=== PATIENT | female | born 1990 | race Caucasian/White ===

== ENCOUNTER 2023-12-09 08:09 | Emergency (ER) | payer OTHER ==
--- OUTSIDE RECORDS SUMMARY | 2023-12-09 08:14 | XMS REPORT | Continuity of Care Document ---
Author Name Unknown Address [address] [facility] [place] [address] [facility] Address [address] [facility] [address] [place] [address] Care Team Providers Care Tape Editor Name Role Phone Ash SIERRA, [facility] Primary Care Physician [phone] Enid Roa Attending Clinician Unavailable [email or web address]_Maneula_S Attending Clinician Unavaila MYNOR Mckenzie B Attending Clinician Unavailable GerriMynor Carrasco Attending Clinician [phone] [email or web address]_S Admitting Clinician Unavaila MARA MckenzieY B Admitting Clinician Unavailable Payers Payer Name Policy Type Policy Number Effective Date Expirati on Date Source [facility] [id number] 2012 00:00:00 2021 00:00:00 [place] [address] [id number] 2017 00:00:00 Common [facility] Problems Condition Name Condition Details Condition Category Status Onset Date Resolution Date Last Treatment Date Treating Clinician Comments Source No known active problems No known active problems Disease [facility] Fever Fever, unspecifie d Problem [facility] [id number] Seasonal allergies Problem [facility] Acute tonsilliti s Acute tonsilliti s, unspecifie d Problem [facility] [id number] BMI 36.0-36.9, adult Problem [facility] [id number] Obesity (BMI 30.0-34.9) Problem [facility] [id number] Anxiety Problem [facility] [id number] Current mild episode of major depressive disorder without prior episode Problem [facility] [id number] Vitamin D deficiency Problem [facility] Hyperlipid emia Hyperlipid emia due to dietary fat intake Problem [facility] Chronic fatigue syndrome Chronic fatigue Problem [facility] [id number] Gastroesop hageal reflux disease, esophagiti s presence not specified Problem [facility] [id number] Severe obesity (BMI >= 40) Problem [facility] [id number] Irregular menses Problem [facility] [id number] Stress at home Problem [facility] Allergies, Adverse Reactions, Alerts Allergy Name Allergy Type Status Severity Reaction(s) Onset Date Inactive Date Treating Clinician Comments Source NO KNOWN ALLERGIE S Drug Class Active [facility] Social History Social Habit Start Date Stop Date Quantity Comments Source History of Tobacco Use [facility] Sex Assigned At [facility] Exposure to SARS-CoV-2 (event) 2021-07-11 00:00:00 2021-07-21 19:22:00 Not sure [facility] Alcohol intake 2021-07-21 00:00:00 2021-07-21 00:00:00 Current non-drinker of alcohol (finding) [facility] Smoking Status Start Date Stop Date Source Never Smoker [facility] Medications Ordered Medication Name Filled Medication Name Start Date Stop Date Current Medication? Ordering Clinician Indication Dosage Frequency Signature (SIG) Comments Components Source pantoprazol e 20 mg tablet,dona yed release 0 - 00:00: 00 Yes 1mg Gurrpeet Fermin Lexapro 20 mg tablet 0 - 00:00: 00 Yes 1mg Gurpreet Fermin trazodone 50 mg tablet 0 - 00:00: 00 Yes 2mg Gurpreet Fermin levocetiriz ine 5 mg tablet 0 - 00:00: 00 Yes 1mg Gurpreet Fermin propranolol 10 mg tablet 0 - 00:00: 00 Yes 2mg Gurpreet Fermin glycopyrrol ate 1 mg tablet - 00:00: 00 Yes 1mg Gurpreet Fermin Lexapro 20 mg tablet - 00:00: 00 Yes 1mg Gurpreet Fermin propranolol 10 mg tablet - 00:00: 00 Yes 2mg Gurpreet Fermin trazodone 50 mg tablet 0 - 00:00: 00 Yes 2mg Gurpreet Fermin levocetiriz ine 5 mg tablet - 00:00: 00 Yes 1mg Gurpreet Fermin pantoprazol e 20 mg tablet,dona yed release - 00:00: 00 Yes 1mg Gurpreet Fermin propranolol 10 mg tablet 0 - 00:00: 00 Yes 2mg Gurpreet Fermin glycopyrrol ate 1 mg tablet 0 - 00:00: 00 Yes 1mg Gurpreet Fermin Lexapro 20 mg tablet 0 -06 00:00: 00 Yes 1mg Gurpreet Fermin propranolol 10 mg tablet 0 -06 00:00: 00 Yes 2mg Gurpreet Fermin trazodone 50 mg tablet 0 -06 00:00: 00 Yes 2mg Gurpreet Fermin 1 SPRAY EACH NARES 2 TIMES A DAY 0 - 00:00: 00 Yes Gurpreet Fermin 1 TABLET TWICE A DAY 0 - 00:00: 00 Yes Gurpreet Fermin guanfacine 1 mg tablet 0 -16 00:00: 00 Yes 1mg Gurpreet Fermin Lexapro 20 mg tablet 0 -16 00:00: 00 Yes 1mg Gurpreet Fermin trazodone 50 mg tablet 07-15 00:00: 00 Yes 2mg Gurpreet Fermin pantoprazol e 20 mg tablet,dona yed release 07-02 00:00: 00 Yes 1mg Gurpreet Fermin Lexapro 20 mg tablet 06-30 00:00: 00 Yes 1mg Gurpreet Fermin propranolol 10 mg tablet 06-30 00:00: 00 Yes 2mg Gurpreet Ferimn trazodone 50 mg tablet 06-30 00:00: 00 Yes 2mg Gurpreet Fermin atomoxetine 10 mg capsule 06-30 00:00: 00 Yes 1mg Gurpreet Fermin TAKE 1 TABLET BY MOUTH ONCE A DAY 05-24 00:00: 00 08-12 00:00 :00 No 20 Gurpreet Fermin TAKE 1 TABLET DAILY. 05-24 00:00: 00 08-12 00:00 :00 No 20 Gurpreet Fermin 2 TABLETS PO TWICE DAILY 05-24 00:00: 00 08-12 00:00 :00 No 10 Gurpreet Fermin TAKE 1 CAPSULES TWICE DAILY NEEDED FOR ANXIETY 05-24 00:00: 00 08-12 00:00 :00 No 25 Gurpreet Fermin TAKE 2 TAB AT NIGHT 05-24 00:00: 00 08-12 00:00 :00 No 50 Gurpreet Fermin TAKE 1 TABLET BY MOUTH TWICE A DAY FOR 10 DAYS -20 00:00: 00 Yes Gurpreet Fermin TAKE 6 TABLETS ON DAY 1 DIRECTED ON PACKAGE AND DECREASE BY 1 TAB EACH DAY FOR A TOTAL OF 6 DAYS 18 00:00: 00 Yes Gurpreet Fermin TAKE 2 TAB AT NIGHT -16 00:00: 00 08-12 00:00 :00 No 50 Gurpreet Fermin 2 TABLETS PO TWICE DAILY -16 00:00: 00 08-12 00:00 :00 No 10 Gurpreet Fermin TAKE 1 CAPSULES TWICE DAILY NEEDED FOR ANXIETY -16 00:00: 00 08-12 00:00 :00 No 25 Gurpreet F Zander TAKE 1 TABLET DAILY. 1-16 00:00: 00 08-12 00:00 :00 No 5 Gurpreet F Zander TAKE 1 TABLET DAILY. -16 00:00: 00 08-12 00:00 :00 No 10 Gurpreet F Zander TAKE 1 TABLET 3 TIMES DAILY. 1- 00:00: 00 08-12 00:00 :00 No 1 Gurpreet F Zander TAKE 1 TABLET BY MOUTH ONCE A DAY 1-04 00:00: 00 08-12 00:00 :00 No 20 Gurpreet F Zander TAKE 10 ML BY MOUTH EVERY 4 TO 6 HOURS NEEDED FOR COUGH. 2022-04 2- 00:00: 00 08-12 00:00 :00 No [id number] Gurpreetsarkis Fermin TAKE 1 CAPSULE TWICE DAILY WITH MEALS. 2022-04 00:00: 00 08-12 00:00 :00 No 75 Gurpreetsarkis Fermin 2 TABLETS PO TWICE DAILY 2022-04 2- 00:00: 00 08-12 00:00 :00 No 10 Gurpreet F Zander TAKE 1 CAPSULES TWICE DAILY NEEDED FOR ANXIETY 2022-04 00:00: 00 08-12 00:00 :00 No 25 Gurpreet F Zander TAKE 2 TAB AT NIGHT 2022-04 00:00: 00 08-12 00:00 :00 No 50 Gurpreetsarkis Fermin TAKE 1 TABLET DAILY. 2022-04 219 00:00: 00 08-12 00:00 :00 No 10 Gurpreet F Zander TAKE 1 TABLET 3 TIMES DAILY. 2022-04 2- 00:00: 00 08-12 00:00 :00 No 1 Gurpreet F Zander TAKE 1 TABLET BY MOUTH ONCE A DAY 2022-04 2- 00:00: 00 08-12 00:00 :00 No 20 Gurpreet F Zander TAKE 1 TABLET 3 TIMES DAILY. 2022-04 2-07 00:00: 00 08-12 00:00 :00 No 1 Gurpreet F Zander TAKE 1 CAPSULES TWICE DAILY NEEDED FOR ANXIETY 2022-04 00:00: 00 08-12 00:00 :00 No 25 Gurpreetsarkis Fermin TAKE 1 TABLET DAILY. 2022-04 00:00: 00 08-12 00:00 :00 No 5 Gurpreet Prateek Fermin TAKE 1 TABLET DAILY. 2022-04 00:00: 00 08-12 00:00 :00 No 10 Gurpreet Prateek Fermin TAKE 1 CAPSULE TWICE DAILY. 2022-04 00:00: 00 08-12 00:00 :00 No 100 Gurpreet F Zander APPLY TO AFFECTED AREA TWICE DAILY DIRECTED. 2022-04 00:00: 00 08-12 00:00 :00 No [id number] Gurpreetsarkis Fermin TAKE 1 TABLET BY MOUTH TWICE A DAY 2022-04 00:00: 00 08-12 00:00 :00 No 500 Gurpreet F Zander 2 TABLETS PO TWICE DAILY 2022-04 00:00: 00 08-12 00:00 :00 No 10 Gurpreet Prateek Fermin TAKE 2 TAB AT NIGHT 2022-04 00:00: 00 08-12 00:00 :00 No 50 Gurpreet F Zander TAKE 1 TABLET DAILY. 2022-04 00:00: 00 08-12 00:00 :00 No 5 Gurpreet Prateek Fermin TAKE 1 TABLET BY MOUTH ONCE A DAY 2022-04 016 00:00: 00 08-12 00:00 :00 No 20 Gurpreetsarkis Fermin TAKE 1 TABLET DAILY. 2022-04 0-03 00:00: 00 08-12 00:00 :00 No 10 Gurpreet Prateek Fermin TAKE 1 CAPSULE AT BEDTIME. 2022-04 0-03 00:00: 00 08-12 00:00 :00 No 10 Gurpreet F Zander TAKE 1 TABLET DAILY. 12-06 00:00: 00 08-12 00:00 :00 No 10 Gurpreet F Zander TAKE 1 CAPSULES TWICE DAILY NEEDED FOR ANXIETY 12-06 00:00: 00 08-12 00:00 :00 No 25 Gurpreet F Zander TAKE 3 NIGHTLY 12-06 00:00: 00 08-12 00:00 :00 No 50 Gurpreet F Zander TAKE 3 NIGHTLY 8- 00:00: 00 08-12 00:00 :00 No 50 Gurpreet F Zander TAKE 1 TABLET DAILY. 8- 00:00: 00 08-12 00:00 :00 No 10 Gurpreet F Zander 2 TABLETS PO TWICE DAILY 8 00:00: 00 08-12 00:00 :00 No 10 Gurpreet F Zander TAKE 1 CAPSULES TWICE DAILY NEEDED FOR ANXIETY 11-09 00:00: 00 08-12 00:00 :00 No 25 Gurpreet F Zander TAKE 1 TABLET DAILY. 11-09 00:00: 00 08-12 00:00 :00 No 5 Gurpreet F Zander TAKE 1 TABLET 3 TIMES DAILY. 10-26 00:00: 00 08-12 00:00 :00 No 1 Gurpreet Prateek Fermin TAKE 1 TABLET DAILY. 10-17 00:00: 00 08-12 00:00 :00 No 20 Gurpreet F Zander TAKE 1 TABLET DAILY. 7 00:00: 00 08-12 00:00 :00 No 10 Gurpreet F Zander TAKE 3 NIGHTLY 10-09 00:00: 00 08-12 00:00 :00 No 50 Gurpreet F Zander 2 TABLETS PO TWICE DAILY 7 00:00: 00 08-12 00:00 :00 No 10 Gurpreet F Zander TAKE 1 CAPSULES TWICE DAILY NEEDED FOR ANXIETY 10-09 00:00: 00 08-12 00:00 :00 No 25 Gurpreet F Zander TAKE 1 TABLET DAILY. 10-09 00:00: 00 08-12 00:00 :00 No 5 Gurpreet F Zander INSERT 1 RING VAGINALLY FOR 3 WEEKS THEN 1 WEEK OFF. 6-15 00:00: 00 08-12 00:00 :00 No [id number] Gurpreet F Zander TAKE 3 NIGHTLY 09-11 00:00: 00 08-12 00:00 :00 No 50 Gurpreet F Zander TAKE 1 TABLET DAILY. 0 6- 00:00: 00 08-12 00:00 :00 No 5 Gurpreet F Zander TAKE 1 CAPSULES TWICE DAILY NEEDED FOR ANXIETY 0 09-11 00:00: 00 08-12 00:00 :00 No 25 Gurpreet F Zander TAKE 1 TABLET DAILY. 0 08 00:00: 00 08-12 00:00 :00 No 5 Gurpreet F Zander TAKE 1 TABLET 3 TIMES DAILY. 0 08 00:00: 00 08-12 00:00 :00 No 1 Gurpreet F Zander 2 TABLETS PO TWICE DAILY 0 09-04 00:00: 00 08-12 00:00 :00 No 10 Gurpreet F Zander TAKE 1 TABLET DAILY. 0 09-04 00:00: 00 08-12 00:00 :00 No 20 Gurpreet F Zander TAKE 1 TABLET 3 TIMES DAILY. 0 -15 00:00: 00 08-12 00:00 :00 No 1 Gurpreet F Zander TAKE 1 TABLET DAILY. 0 5-15 00:00: 00 08-12 00:00 :00 No 20 Gurpreet F Zander TAKE 1 TABLET DAILY. 0 5-15 00:00: 00 08-12 00:00 :00 No 5 Gurpreet F Zander TAKE 3 NIGHTLY 0 5-10 00:00: 00 08-12 00:00 :00 No 50 Gurpreet F Zander TAKE 1 CAPSULES TWICE DAILY NEEDED FOR ANXIETY 0 5-10 00:00: 00 08-12 00:00 :00 No 25 Gurpreet F Zander TAKE 1 TABLET DAILY. 0 5-10 00:00: 00 08-12 00:00 :00 No 10 Gurpreet F Zander TAKE 3 NIGHTLY 0 5-01 00:00: 00 08-12 00:00 :00 No 50 Gurpreet F Zander TAKE 1 TABLET DAILY. 0 4-11 00:00: 00 08-12 00:00 :00 No 10 Gurpreet F Zander TAKE 1 CAPSULES TWICE DAILY NEEDED FOR ANXIETY 4-11 00:00: 00 08-12 00:00 :00 No 25 Gurpreet F Zander TAKE 1 TABLET DAILY. 4-11 00:00: 00 08-12 00:00 :00 No 5 Gurpreet F Zander 2 TABLETS PO TWICE DAILY 4-11 00:00: 00 08-12 00:00 :00 No 10 Gurpreet Prateek Fermin TAKE 1 TABLET AT BEDTIME. 4-11 00:00: 00 08-12 00:00 :00 No 150 Gurpreet F Zander 2 tablet BID 2-06 00:00: 00 08-12 00:00 :00 No 10 Gurpreet F Zander 1 tablet TID 2-06 00:00: 00 08-12 00:00 :00 No 1 Gurpreet Prateek Fermin once daily 2-06 00:00: 00 08-12 00:00 :00 No 25 Gurpreet F Zander once daily 2-06 00:00: 00 08-12 00:00 :00 No 10 Gurpreet F Zander once daily 2-06 00:00: 00 08-12 00:00 :00 No 100 Gurpreet F Zander TAKE 1 TABLET DAILY. 2-06 00:00: 00 08-12 00:00 :00 No 5 Gurpreet Prateek Zander TAKE 1 TABLET DAILY. 2-06 00:00: 00 08-12 00:00 :00 No 20 Gurpreet Prateek Fermin TAKE 1 TABLET BY MOUTH EVERY DAY IN THE EVENING FOR 90 DAYS 2021-04 00:00: 00 08-12 00:00 :00 No Gurpreet F Zander TAKE 1 TABLET BY MOUTH THREE TIMES A DAY FOR 90 DAYS 2021-04 00:00: 00 08-12 00:00 :00 No Gurpreet F Zander TAKE 1 TABLET BY MOUTH EVERY DAY FOR 90 DAYS 2021-04 00:00: 00 08-12 00:00 :00 No Gurpreet Fermin DISSOLVE 1 TABLET BY MOUTH EVERY 8 HOURS NEEDED FOR NAUSEA AND VOMITING 2021-04 0-02 00:00: 00 08-12 00:00 :00 Sondra Gurpreet Prateek Fermin TAKE 1 TABLET BY MOUTH EVERY DAY 2021-04 0-02 00:00: 00 08-12 00:00 :00 Sondra Gurpreet Prateek Fermin TAKE 1 TABLET BY MOUTH TWICE A DAY FOR 7 DAYS 0 5-03 00:00: 00 08-12 00:00 :00 Sondra Fermin cefTRIAXone (ROCEPHIN) 1,000 mg in NaCl 0.9% (NS) 50 mL MINI-BAG 07-22 02:30: 00 07-22 03:03 :00 No 1000mg 1,000 mg, IV Piggyback, ONCE, 1 dose, On Sat07/21/21 at 2130, Administer over 30 Minutes, 50 mL
Reas on for Anti-Infec tive: Empiric Therapy for Suspected Infection< br>Empiric Therapy Site: Urine
D uration of therapy: 72 hours [facility] NaCl 0.9% (NS) bolus infusion 1,000 mL 07-22 02:00: 00 07-22 03:03 :00 No 1000mL at 999 mL/hr, 1,000 mL, IV Infusion, ONCE, 1 dose, On Sat07/21/21 at 2100, [facility] ondansetron (ZOFRAN (PF)) injection 4 mg 07-22 01:30: 00 07-22 00:46 :00 No 4mg 4 mg, Slow IV Push, ONCE, 1 dose, On Sat07/21/21 at 2030, [facility] NaCl 0.9% (NS) bolus infusion 1,000 mL 07-22 01:30: 00 07-22 03:03 :00 No 1000mL at 999 mL/hr, 1,000 mL, IV Infusion, ONCE, 1 dose, On Sat07/21/21 at 2030, [facility] TAKE 1 CAPSULE BY MOUTH TWICE A DAY FOR 7 DAYS 07-22 00:00: 00 08-12 00:00 :00 Sondra Fermin ondansetron 4 mg disintegrat ing tablet 07-21 00:00: 00 Yes [id number] 4mg Take 1 tablet by mouth every 8 (eight) hours as needed for Nausea and Vomiting (N/V). [facility] cefdinir 300 mg capsule 07-21 00:00: 00 07-29 04:59 :00 No [id number] 300mg Take 1 capsule by mouth 2 (two) times daily for 7 days. [facility] TAKE 1 TABLET BY MOUTH NOW, THEN AGAIN IN 72 HOURS 4 DAY(S) 06-22 00:00: 00 08-12 00:00 :00 No Gurpreet Fermin Ergocalcife rol Ergocalcife rol 11-26 00:00: 00 02-23 00:00 :00 No Enid Roa 1 capsule Common [facility] amoxicillin (TRIMOX) capsule 1,000 mg 06-16 21:45: 00 06-16 20:57 :00 No 1000mg 1,000 mg, Oral, ONCE, 1 dose, Sat06/17/19 at 1645, [facility]
Re ason for Anti-Infec tive: Documented Infection< br>Documen abi Infection Site: Respirator y
Durat ion of Therapy: Other (see Comments) [facility] iohexol (OMNIPAQUE 350 BULK-150 mL) injection 120 mL 06-16 20:15: 00 06-16 19:55 :00 No 120mL 120 mL, Intravenou s, ONCE, 1 dose, Sat06/17/19 at 1515, Routine [facility] acetaminoph en (TYLENOL) tablet 1,000 mg 06-16 18:45: 00 06-16 17:51 :00 No 1000mg 1,000 mg, Oral, ONCE, 1 dose, Sat06/17/19 at 1345, [facility] NaCl 0.9% (NS) bolus infusion 2,793 mL 06-16 17:30: 00 06-16 20:59 :00 No 30mL/kg at 999 mL/hr, 2,793 mL (30 mL/kg ?93.1 kg), IV Infusion, ONCE, 1 dose, Sat06/17/19 at 1230, [facility] azithromyci n (ZITHROMAX Z-PARVIZ) 250 mg tablet 06-16 00:00: 00 Yes [id number] 250mg Take 1 tablet by mouth daily. Take 500 mg day 1, then 250 mg days 2 to 5. [facility] amoxicillin 500 mg capsule 06-16 00:00: 00 06-17 04:59 :00 No [id number] 1000mg Take 2 capsules by mouth once now for 1 dose. [facility] ORTHO TRI-CYCLEN- 28 (ORTHO TRI-CYCLEN, 28,) 0.18/0.215/ 0.25 mg-35 mcg (28) tablet 09-25 00:00: 00 Yes [id number] 1{tbl} Take 1 Tab by mouth daily. [facility] Gummies/DHA & FA Gummies/DHA & FA Yes Na Roa as directed [facility] Levocetiriz ine Dihydrochlo ride Levocetiriz ine Dihydrochlo ride Yes Na Roa 1 tablet in the evening [facility] Flonase Flonase Yes Na Roa 2 spray in each nostril [facility] Propranolol HCl Propranolol HCl Yes Na Roa 1 tablet on an empty stomach [facility] BusPIRone HCl BusPIRone HCl Yes Na Roa 1 tablet [facility] Flonase Flonase Yes Na Roa 2 spray in each nostril [facility] Prozac Prozac Yes Na Roa 1 capsule [facility] Glycopyrrol ate Glycopyrrol ate Yes Na Roa 1 tablet [facility] Pantoprazol e Sodium Pantoprazol e Sodium Yes Na Roa 1 tablet [facility] HydrOXYzine HCl HydrOXYzine HCl Yes Na Roa TAKE 1 TABLET BY MOUTH TWICE A DAY [facility] Propranolol HCl 10 MG Propranolol HCl 10 MG No 1{table t_on_an _empty_ stomach } Propranolo l HCl 10 MG PROzac 40 MG PROzac 40 MG No 1{capsu le} QD PROzac 40 MG Pantoprazol e Sodium 40 MG Pantoprazol e Sodium 40 MG No Pantoprazo le Sodium 40 MG PROzac 40 MG PROzac 40 MG No 1{capsu le} QD PROzac 40 MG Flonase 50 MCG/ACT Flonase 50 MCG/ACT No 2{spray _in_eac h_nostr il} QD Flonase 50 MCG/ACT Vitamin D (Ergocalcif paul) 1.25 MG (42679 UT) Vitamin D (Ergocalcif paul) 1.25 MG ( UT) No Vitamin D (Ergocalci ferol) 1.25 MG ( UT) Propranolol HCl 10 MG Propranolol HCl 10 MG No 1{table t_on_an _empty_ stomach } Propranolo l HCl 10 MG Glycopyrrol ate 1 MG Glycopyrrol ate 1 MG No 1{table t} BID Glycopyrro late 1 MG Gummies/DHA & FA 0.4-32.5 MG Gummies/DHA & FA 0.4-32.5 MG No Gummies/DH A & FA 0.4-32.5 MG hydrOXYzine HCl 10 MG hydrOXYzine HCl 10 MG No hydrOXYzin e HCl 10 MG Levocetiriz ine Dihydrochlo ride 5 MG Levocetiriz ine Dihydrochlo ride 5 MG No Levocetiri zine Dihydrochl oride 5 MG busPIRone HCl 15 MG busPIRone HCl 15 MG No busPIRone HCl 15 MG Pantoprazol e Sodium 20 MG Pantoprazol e Sodium 20 MG No 1{table t} QD Pantoprazo le Sodium 20 MG Levocetiriz ine Dihydrochlo ride 5 MG Levocetiriz ine Dihydrochlo ride 5 MG No 1{table t_in_th e_eveni ng} QD Levocetiri zine Dihydrochl oride 5 MG busPIRone HCl 15 MG busPIRone HCl 15 MG No busPIRone HCl 15 MG hydrOXYzine HCl 10 MG hydrOXYzine HCl 10 MG No hydrOXYzin e HCl 10 MG Gummies/DHA & FA 0.4-32.5 MG Gummies/DHA & FA 0.4-32.5 MG No Gummies/DH A & FA 0.4-32.5 MG Pantoprazol e Sodium 40 MG Pantoprazol e Sodium 40 MG No Pantoprazo le Sodium 40 MG Vitamin D (Ergocalcif paul) 1.25 MG (71587 UT) Vitamin D (Ergocalcif paul) 1.25 MG (14811 UT) No Vitamin D (Ergocalci ferol) 1.25 MG ( UT) PROzac 40 MG PROzac 40 MG No 1{capsu le} QD PROzac 40 MG Flonase 50 MCG/ACT Flonase 50 MCG/ACT No 2{spray _in_eac h_nostr il} QD Flonase 50 MCG/ACT Glycopyrrol ate 1 MG Glycopyrrol ate 1 MG No 1{table t} TID Glycopyrro late 1 MG Propranolol HCl 10 MG Propranolol HCl 10 MG No Propranolo l HCl 10 MG hydrOXYzine HCl 10 MG hydrOXYzine HCl 10 MG No hydrOXYzin e HCl 10 MG Levocetiriz ine Dihydrochlo ride 5 MG Levocetiriz ine Dihydrochlo ride 5 MG No 1{table t_in_ e_eveni ng} QD Levocetiri zine Dihydrochl oride 5 MG Pantoprazol e Sodium 40 MG Pantoprazol e Sodium 40 MG No Pantoprazo le Sodium 40 MG Gummies/DHA & FA 0.4-32.5 MG Gummies/DHA & FA 0.4-32.5 MG No Gummies/DH A & FA 0.4-32.5 MG Glycopyrrol ate 1 MG Glycopyrrol ate 1 MG No 1{table t} BID Glycopyrro late 1 MG Vitamin D (Ergocalcif paul) 1.25 MG (47603 UT) Vitamin D (Ergocalcif paul) 1.25 MG (53235 UT) No Vitamin D (Ergocalci ferol) 1.25 MG (58419 UT) Flonase 50 MCG/ACT Flonase 50 MCG/ACT No 2{spray _in_eac h_nostr il} QD Flonase 50 MCG/ACT busPIRone HCl 15 MG busPIRone HCl 15 MG No busPIRone HCl 15 MG Immunizations Ordered Immunization Name Filled Immunization Name Date Status Comments Source Moderna COVID-19 Vaccine Moderna COVID-19 Vaccine 2020-06-04 00:00:00 Completed Gurpreet Fermin Moderna COVID-19 Vaccine Moderna COVID-19 Vaccine 2020-05-10 00:00:00 Completed Gurpreet Prateek Fermin Afluria single dose Afluria single dose 11:31:00 Completed [facility] Afluria single dose Afluria single dose 11:31:00 Completed [facility] Afluria single dose Afluria single dose 11:31:00 Completed [facility] Afluria single dose Afluria single dose 11:31:00 Completed [facility] Afluria single dose Afluria single dose 11:31:00 Completed [facility] Afluria single dose Afluria single dose 11:31:00 Completed [facility] Afluria Afluria 2018-01-20 09:03:00 Completed [facility] Afluria Afluria 2018-01-20 09:03:00 Completed [facility] Afluria Afluria 2018-01-20 09:03:00 Completed [facility] Afluria Afluria 2018-01-20 09:03:00 Completed [facility] Afluria Afluria 2018-01-20 09:03:00 Completed [facility] Afluria Afluria 2018-01-20 09:03:00 Completed [facility] Vital Signs Vital Name Observation Time Observation Value Comments S ource height 2021-07-24 08:40:00 61 [in_i] Commo n [facility] weight 2021-07-24 08:40:00 164 [lb_av] Comm on [facility] temperature 2021-07-24 08:40:00 97.7 [degF] Com mon [facility] bmi 2021-07-24 08:40:00 28.2 kg/m2 Commo n [facility] oximetry 2021-07-24 08:40:00 100 % Commo n [facility] respiratory rate 2021-07-24 08:40:00 16 /min Common [facility] blood pressure systolic 2021-07-24 08:40:00 127 mm[Hg] [facility] blood pressure diastolic 2021-07-24 08:40:00 83 mm[Hg] [facility] Systolic blood pressure 2021-07-22 02:00:00 128 mm[Hg] [facility] Diastolic blood pressure 2021-07-22 02:00:00 83 mm[Hg] [facility] Heart rate 2021-07-22 02:00:00 102 /min [facility] Respiratory rate 2021-07-22 02:00:00 20 /min [facility] Oxygen saturation in Arterial blood by Pulse oximetry 2021-07-22 02:00:00 100 /min [facility] Body temperature 2021-07-22 00:26:00 37.56 Radha [facility] Body height 2021-07-22 00:26:00 154.9 cm [facility] Body weight 2021-07-22 00:26:00 77.111 kg [facility] BMI 2021-07-22 00:26:00 32.12 kg/m2 [facility] height 2021-01-25 11:00:00 61 [in_i] Commo n [facility] weight 2021-01-25 11:00:00 188 [lb_av] Comm on [facility] bmi 2021-01-25 11:00:00 35.52 kg/m2 Comm on [facility] Systolic blood pressure 2019-06-17 21:00:00 110 mm[Hg] [facility] Diastolic blood pressure 2019-06-17 21:00:00 66 mm[Hg] [facility] Heart rate 2019-06-17 21:00:00 99 /min [facility] Respiratory rate 2019-06-17 21:00:00 18 /min [facility] Oxygen saturation in Arterial blood by Pulse oximetry 2019-06-17 21:00:00 98 /min [facility] Body temperature 2019-06-17 19:00:00 37.22 Radha [facility] Body height 2019-06-17 16:59:00 157.5 cm [facility] Body weight 2019-06-17 16:59:00 93.078 kg [facility] BMI 2019-06-17 16:59:00 37.53 kg/m2 [facility] BP Systolic 2023-09-30 17:41:00 112 mm[Hg] Step hen F Zander BP Diastolic 2023-09-30 17:41:00 83 mm[Hg] Jose phen F Zander Weight Measured 2023-09-30 17:41:00 200.00 pounds Gurpreet F Zander Height Measured 2023-09-30 17:41:00 62.00 inches Gurpreet F Zander Body Temperature 2023-09-30 17:41:00 98.20 degrees Gurpreet F Zander Heart Rate 2023-09-30 17:41:00 94.00 /min [facility] en F Zander Respiratory Rate 2023-09-30 17:41:00 18.00 /min Gurpreet F Zander BP Systolic 2023-07-01 16:57:00 111 mm[Hg] Step hen F Zander BP Diastolic 2023-07-01 16:57:00 79 mm[Hg] Jose phen F Zander Weight Measured 2023-07-01 16:57:00 196.20 pounds Gurpreet F Zander Height Measured 2023-07-01 16:57:00 62.00 inches Gurpreet F Zander Body Temperature 2023-07-01 16:57:00 97.90 degrees Gurpreet F Zander Heart Rate 2023-07-01 16:57:00 91.00 /min Maria Del Carmen en F Zander Respiratory Rate 2023-07-01 16:57:00 18.00 /min Gurpreet F Zander BP Systolic 2023-04-10 16:51:00 109 mm[Hg] Step hen F Zander BP Diastolic 2023-04-10 16:51:00 77 mm[Hg] Jose phen F Zander Weight Measured 2023-04-10 16:51:00 205.00 pounds Gurpreet F Zander Height Measured 2023-04-10 16:51:00 62.00 inches Gurpreet F Zander Body Temperature 2023-04-10 16:51:00 98.30 degrees Gurpreet F Zander Heart Rate 2023-04-10 16:51:00 82.00 /min Maria Del Carmen en F Zander Respiratory Rate 2023-04-10 16:51:00 18.00 /min Gurpreet F Zander BP Systolic 2023-03-20 13:58:00 115 mm[Hg] Step hen F Zander BP Diastolic 2023-03-20 13:58:00 68 mm[Hg] Jose phen F Zander Weight Measured 2023-03-20 13:58:00 206.20 pounds Gurpreet F Zander Height Measured 2023-03-20 13:58:00 62.00 inches Gurpreet F Zander Body Temperature 2023-03-20 13:58:00 98.20 degrees Gurpreet F Zander Heart Rate 2023-03-20 13:58:00 83.00 /min Maria Del Carmen en F Zander Respiratory Rate 2023-03-20 13:58:00 18.00 /min Gurpreet F Zander BP Systolic 2023-03-07 16:59:00 111 mm[Hg] Step hen F Zander BP Diastolic 2023-03-07 16:59:00 64 mm[Hg] Jose phen F Zander Weight Measured 2023-03-07 16:59:00 202.60 pounds Gurpreet F Zander Height Measured 2023-03-07 16:59:00 62.00 inches Gurpreet F Zander Body Temperature 2023-03-07 16:59:00 98.40 degrees Gurpreet F Zander Heart Rate 2023-03-07 16:59:00 79.00 /min Maria Del Carmen en F Zander Respiratory Rate 2023-03-07 16:59:00 19.00 /min Gurpreet F Zander BP Systolic 2023-02-06 14:12:00 129 mm[Hg] Step hen F Zander BP Diastolic 2023-02-06 14:12:00 84 mm[Hg] Jose phen F Zander Weight Measured 2023-02-06 14:12:00 205.40 pounds Gurpreet F Zander Height Measured 2023-02-06 14:12:00 62.00 inches Gurpreet F Zander Body Temperature 2023-02-06 14:12:00 98.10 degrees Gurpreet F Zander Heart Rate 2023-02-06 14:12:00 76.00 /min Maria Del Carmen en F Zander Respiratory Rate 2023-02-06 14:12:00 Gurpreet F Zander BP Systolic 2023-02-04 17:05:00 114 mm[Hg] Step hen F Zander BP Diastolic 2023-02-04 17:05:00 78 mm[Hg] Jose phen F Zander Weight Measured 2023-02-04 17:05:00 205.80 pounds Gurpreet F Zander Height Measured 2023-02-04 17:05:00 62.00 inches Gurpreet F Zander Body Temperature 2023-02-04 17:05:00 98.20 degrees Gurpreet F Zander Heart Rate 2023-02-04 17:05:00 86.00 /min Maria Del Carmen en F Zander Respiratory Rate 2023-02-04 17:05:00 19.00 /min Gurpreet F Zander BP Systolic 2022-10-17 14:50:00 110 mm[Hg] Step hen F Zander BP Diastolic 2022-10-17 14:50:00 74 mm[Hg] Jose phen F Zander Weight Measured 2022-10-17 14:50:00 196.80 pounds Gurpreet F Zander Height Measured 2022-10-17 14:50:00 62.00 inches Gurpreet F Zander Body Temperature 2022-10-17 14:50:00 98.10 degrees Gurpreet F Zander Heart Rate 2022-10-17 14:50:00 76.00 /min Maria Del Carmen en F Zander Respiratory Rate 2022-10-17 14:50:00 17.00 /min Gurpreet F Zander BP Systolic 2022-09-13 17:35:00 126 mm[Hg] Step hen F Zander BP Diastolic 2022-09-13 17:35:00 75 mm[Hg] Jose phen F Zander Weight Measured 2022-09-13 17:35:00 195.80 pounds Gurpreet F Zander Height Measured 2022-09-13 17:35:00 62.00 inches Gurpreet F Zander Body Temperature 2022-09-13 17:35:00 98.10 degrees Gurpreet F Zander Heart Rate 2022-09-13 17:35:00 90.00 /min Maria Del Carmen en F Zander Respiratory Rate 2022-09-13 17:35:00 19.00 /min Gurpreet Fermin BP Systolic 2022-09-06 09:47:00 113 mm[Hg] Jordan Fermin BP Diastolic 2022-09-06 09:47:00 78 mm[Hg] Jose Fermin Weight Measured 2022-09-06 09:47:00 195.00 pounds Gurpreet Fermin Height Measured 2022-09-06 09:47:00 62.00 inches Gurpreet Fermin Body Temperature 2022-09-06 09:47:00 98.20 degrees Gurpreet Fermin Heart Rate 2022-09-06 09:47:00 82.00 /min Maria Del Carmen en Prateek Fermin Respiratory Rate 2022-09-06 09:47:00 17.00 /min Gurpreet Fermin Procedures Procedure Date / Time Performed Performing Clinician Source LIPASE 2021-07-22 00:47:00 Mynor Montoya [facility] COMP. METABOLIC PANEL (58486) 2021-07-22 00:47:00 Mynor Montoya [facility] CBC WITH DIFF 2021-07-22 00:47:[address] [facility] 2021-07-22 00:47:00 Mynor Montoya [facility] POCT TEST 2021-07-22 00:47:00 Mynor Montyoa [facility] NOTICE OF PRIVACY PRACTICES 2021-07-22 00:16:53 Doctor Unassigned, [place] [facility] CONSENT/REFUSAL FOR DIAGNOSIS AND TREATMENT 2021-07-22 00:16:36 Doctor Unassigned, [place] [facility] CT CHEST PULMONARY ANGIOGRAM 2019-06-17 20:02:28 Mynor Montoya [facility] URINALYSIS 2019-06-17 19:15:00 Mynor Montoya [facility] POCT TEST 2019-06-17 19:15:00 Mynor Montoya [facility] ADC,CLC OR LCC ONLY - INFLUENZA A & B DIRECT ANTIGEN 2019-06-17 17:47:00 Mynor Montoya [facility] D-DIMER 2019-06-17 17:43:00 Mynor Montyoa [facility] LACTIC ACID WHOLE BLOOD 2019-06-17 17:41:00 Mynor Montoya [facility] COMP. METABOLIC PANEL (57030) 2019-06-17 17:40:00 Mynor Montoya [facility] CBC WITH DIFFERENTIAL 2019-06-17 17:40:00 Arvind Montoya [facility] XR CHEST 1 VW 2019-06-17 17:24:38 Mynor Montoya [facility] Encounters Start Date/Time End Date/Time Encounter Type Admission Type Attending [facility] Facility Care Department Encounter ID Source 2022-03-14 09:48:00 Outpatient Roa, Na STLMLC STLMLC [id number] [facility] 2022-03-01 14:52:00 Outpatient Roa, Na STLMLC STLMLC [id number] [facility] 2022-01-19 10:48:00 Outpatient Roa, Na STLMLC STLMLC [id number] [facility] 2022-01-17 16:10:00 Outpatient Roa, Na STLMLC STLMLC [id number] [facility] 2021-12-17 23:26:41 Outpatient [facility] [id number] [facility] 2021-07-24 08:52:01 Outpatient Roa, Na STLMLC STLMLC [id number] [facility] 2021-04-26 12:28:48 Outpatient Roa, Na STLMLC STLMLC [id number] [facility] 2021-04-26 12:22:44 Outpatient Roa, Na STLMLC STLMLC [id number] [facility] 2021-04-26 12:22:03 Outpatient Roa, Na STLMLC STLMLC [id number] [facility] 2021-04-26 12:15:26 Outpatient Roa, Na STLMLC STLMLC [id number] [facility] 2021-04-26 11:56:54 Outpatient Roa, Na STLMLC STLMLC [id number] [facility] 2021-04-26 11:56:21 Outpatient Roa, Na STLMLC STLMLC [id number] [facility] 2021-04-26 11:28:46 Outpatient Roa, Na STLMLC STLMLC [id number] [facility] 2021-04-26 11:22:57 Outpatient Roa, Na STLMLC STLMLC [id number] [facility] 2021-04-26 11:16:28 Outpatient Enid Roa STLMLC STLMLC [id number] [facility] 2023-10-01 13:41:40 2023-10-01 13:41:40 Outpatient SFA SFA [id number] Gurpreet Fermin 2023-09-30 17:24:33 2023-09-30 17:24:33 Outpatient SFA SFA [id number] Gurpreet Fermin 2023-09-30 00:00:00 2023-09-30 00:00:00 Outpatient Visit SFA [id number] Gurpreet Chandra Zander 2023-09-02 14:24:19 2023-09-02 14:24:19 Outpatient SFA SFA [id number] Gurpreet Chandra Zander 2023-08-05 11:55:54 2023-08-05 11:55:54 Outpatient SFA SFA [id number] Gurpreet Chandra Zander 2023-07-11 15:46:34 2023-07-11 15:46:34 Outpatient SFA SFA [id number] Gurpreet Chandra Zander 2023-07-01 16:46:12 2023-07-01 16:46:12 Outpatient SFA SFA [id number] Gurpreet Chandra Zander 2023-05-24 17:04:52 2023-05-24 17:04:52 Outpatient SFA SFA [id number] Gurpreet Fermin 2023-04-16 17:14:29 2023-04-16 17:14:29 Outpatient SFA SFA [id number] Gurpreet Fermin 2023-04-10 16:46:47 2023-04-10 16:46:47 Outpatient SFA SFA 10 Gurpreet Fermin 2023-03-20 13:52:52 2023-03-20 13:52:52 Outpatient SFA SFA [id number] Gurpreet Fermin 2023-03-07 16:50:06 2023-03-07 16:50:06 Outpatient SFA SFA 07 Gurpreet Fermin 2023-02-19 14:10:10 2023-02-19 14:10:10 Outpatient SFA SFA [id number] Gurpreet Fermin 2023-02-06 14:08:35 2023-02-06 14:08:35 Outpatient SFA SFA [id number] Gurpreet Fermin 2023-02-05 14:40:15 2023-02-05 14:40:15 Outpatient SFA SFA 07 Gurpreet Fermin 2023-02-04 16:43:40 2023-02-04 16:43:40 Outpatient SFA SFA [id number] Gurpreet Fermin 2023-01-26 00:00:00 2023-01-26 00:00:00 Outpatient GC_[id number] diyala_S PRIV PRIV [id number] [facility] 2023-01-23 17:03:16 2023-01-23 17:03:16 Outpatient SFA SFA [id number] Gurpreet Fermin 2023-01-14 12:10:57 2023-01-14 12:10:57 Outpatient SFA SFA [id number] Gurpreet Fermin 2022-12-06 09:00:16 2022-12-06 09:00:16 Outpatient SFA SFA [id number] Gurpreet Fermin 2022-11-09 08:59:12 2022-11-09 08:59:12 Outpatient SFA SFA [id number] Gurpreet Fermin 2022-10-17 14:44:50 2022-10-17 14:44:50 Outpatient SFA SFA [id number] Gurpreet Fermin 2022-09-13 17:26:43 2022-09-13 17:26:43 Outpatient SFA SFA [id number] Gurpreet Fermin 2022-09-06 10:11:55 2022-09-06 10:11:55 Outpatient SFA [facility] [id number] Gurpreet Fermin 2022-09-04 17:03:33 2022-09-04 17:03:33 Outpatient SFA [facility] [id number] Gurpreet Fermin 2022-05-22 17:26:31 2022-05-22 17:26:31 Outpatient SFA [facility] [id number] Gurpreet Fermin 2022-05-07 08:16:36 2022-05-07 08:16:36 Outpatient SFA [facility] [id number] Gurpreet Fermin 2022-03-14 00:00:00 2022-03-14 00:00:00 OFFICE VISIT EST PT LEVEL 3 STLMLC STLMLC [id number] [facility] 2021-07-24 00:00:00 2021-07-24 00:00:00 OFFICE VISIT EST PT LEVEL 3 STLMLC STLMLC [id number] [facility] 2021-07-21 19:28:00 2021-07-21 22:10:00 Emergency X MYNOR MONTOYA [facility] ERT [id number] [facility] 2021-07-21 19:28:00 2021-07-21 22:10:00 Emergency Mynor Montoya [facility] [id number] [facility] 2021-05-04 00:00:00 2021-05-04 00:00:00 (TEL) STLMLC STLMLC [id number] [facility] 2021-03-02 00:00:00 2021-03-02 00:00:00 (TEL) STLMLC STLMLC [id number] [facility] 2021-02-23 00:00:00 2021-02-23 00:00:00 (TEL) STLMLC STLMLC [id number] [facility] 2021-01-25 00:00:00 2021-01-25 00:00:00 OFFICE VISIT EST PT LEVEL 3 STLMLC STLMLC [id number] [facility] 2020-07-28 00:00:00 2020-07-28 00:00:00 Outpatient STLMLC STLMLC [id number] [facility] 2020-07-14 00:00:00 2020-07-14 00:00:00 Outpatient STLMLC STLMLC [id number] [facility] 2020-07-14 00:00:00 2020-07-14 00:00:00 Outpatient STLMLC STLMLC [id number] [facility] 2020-05-26 00:00:00 2020-05-26 00:00:00 Outpatient STLMLC STLMLC [id number] [facility] 2020-05-09 00:00:00 2020-05-09 00:00:00 Outpatient STLMLC STLMLC [id number] [facility] 2020-02-19 00:00:00 2020-02-19 00:00:00 Outpatient STLMLC STLMLC [id number] [facility] 2020-01-19 00:00:00 2020-01-19 00:00:00 Outpatient STLMLC STLMLC [id number] [facility] 2020-01-19 00:00:00 2020-01-19 00:00:00 Outpatient STLMLC STLMLC [id number] [facility] 2020-01-07 00:00:00 2020-01-07 00:00:00 Outpatient STLMLC STLMLC [id number] [facility] 2019-11-27 08:10:00 2019-11-27 08:10:[address] [facility] [id number] [facility] 2019-09-30 09:00:00 2019-09-30 09:00:00 [facility] [id number] [facility] 2019-06-18 09:50:00 2019-06-18 09:50:00 [facility] [id number] [facility] 2019-06-17 12:03:08 2019-06-17 16:14:00 Emergency Mynor Montoya B [facility] [id number] [facility] 2019-06-17 12:03:08 2019-06-17 16:14:00 Emergency X MYNOR MONTOYA [facility] ERT [id number] [facility] 2018-10-31 14:41:00 2018-10-31 14:41:00 [facility] [id number] [facility] 2018-10-17 15:40:00 2018-10-17 15:40:00 [facility] [id number] [facility] 2018-09-22 08:45:00 2018-09-22 08:45:00 [facility] [id number] [facility] 2018-06-12 14:27:00 2018-06-12 14:27:[address] [facility] [facility] [id number] [facility] 2018-04-21 16:47:00 2018-04-21 16:47:00 [address] [facility] [id number] [facility] Results Test Description Test Time Test Comments Results Result Co mments Source COMPREHENSIVE METABOLIC [id number] 04:17:09* Test Item Value Reference Range Interpretation Comme nts GLUCOSE (test code = 2216) 89 MG/DL 70-99 BUN (test code = 2207) 9 MG/DL 6-20 CREATININE (test code = 4) 0.85 MG/DL 0.60-1.30 eGFR (2020 CKD-EPI) (test co de = 16146) 93 ML/MIN/1.73 >60 CALC BUN/CREAT (test code = 2235) 11 RATIO 6-28 SODIUM (test code = 223) 138 MEQ/L 133-146 POTASSIUM (test code = 222) 4.1 MEQ/L 3.5-5.4 CHLORIDE (test code = 2214) 99 MEQ/L 95-107 CARBON DIOXIDE (test code = 2205) 25 MEQ/L 19-31 CALCIUM (test code = 2208) 9.6 MG/DL 8.5-10.5 PROTEIN, TOTAL (test code = 2228) 7.5 G/DL 6.1-8.3 ALBUMIN (test code = 2200) 4.6 G/DL 3.5-5.2 CALC GLOBULIN (test code = 2240) 2.9 G/DL 1.9-3.7 CALC A/G RATIO (test code = 2233) 1.6 RATIO 1.0-2.6 BILIRUBIN, TOTAL (test code = 2206) 0.2 MG/DL <=1.2 ALKALINE PHOSPHATASE (test code = 2203) 109 U/L 40-114 AST (test code = 2217) 15 U/L 9-40 ALT (test code = 2219) 13 U/L 5-40 HEMOGLOBIN [id number] 03:53:12* Test Item Value Reference Range Interpretation Comme [facility] HEMOGLOBIN A1c (test code = 64359) 5.6 % 4.2-5.6 CBC W/AUTO DIFF WITH [id number] 02:36:08* Test Item Value Reference Range Interpretation Comme nts WBC (test code = 1001) 6.7 K/UL 3.5-11.0 RBC (test code = 1002) 4.66 M/UL 3.80-5.40 HEMOGLOBIN (test code = 1003) 12.7 G/DL 11.5-15.5 HEMATOCRIT (test code = 1004) 39.0 % 34.0-45.0 MCV (test code = 1005) 83.7 fL 80.0-99.0 MCH (test code = 1006) 27.3 PG 25.0-33.0 MCHC (test code = 1007) 32.6 G/DL 31.0-36.0 RDW (test code = 1038) 13.3 % 11.5-15.0 NEUTROPHILS (test code = 1008) 62.2 % LYMPHOCYTES (test code = 1010) 24.1 % MONOCYTES (test code = 1011) 9.6 % EOSINOPHILS (test code = 1012) 3.1 % BASOPHILS (test code = 1013) 0.7 % IMMATURE GRANULOCYTES (test code = 1036) 0.3 % NUCLEATED RBCS (test code = 1065) 0.0 /100 WBC'S See_Comment [Automated messa ge] The system which generated this result transmitted reference range: 0.0. The reference range was not used to interpret this result as normal/abnormal. PLATELET COUNT (test code = 1015) 223 K/UL 130-400 ABSOLUTE NEUTROPHILS (test code = 1066) 4.16 K/UL 1.50-7.50 ABSOLUTE LYMPHOCYTES (test code = 1067) 1.61 K/UL 1.00-4.00 ABSOLUTE MONOCYTES (test code = 1068) 0.64 K/UL 0.20-1.00 ABSOLUTE EOSINOPHILS (test code = 1040) 0.21 K/UL 0.00-0.50 ABSOLUTE BASOPHILS (test code = 1069) 0.05 K/UL 0.00-0.20 ABS IMMATURE GRANULOCYTES (test code = 1020) 0.02 K/UL 0.00-0.10 ABS NUCLEATED RBCS (test code = 28467) 0.00 K/UL 0.00-0.11 CBC W/AUTO [id number] 00:00:00* Test Item Value Reference Range Interpretation Comme nts WBC (test code = 1001) 6.7 K/UL RBC (test code = 1002) 4.66 M/UL HEMOGLOBIN (test code = 1003) 12.7 G/DL HEMATOCRIT (test code = 1004) 39.0 % MCV (test code = 1005) 83.7 fL MCH (test code = 1006) 27.3 PG MCHC (test code = 1007) 32.6 G/DL RDW (test code = 1038) 13.3 % NEUTROPHILS (test code = 1008) 62.2 % LYMPHOCYTES (test code = 1010) 24.1 % MONOCYTES (test code = 1011) 9.6 % EOSINOPHILS (test code = 1012) 3.1 % BASOPHILS (test code = 1013) 0.7 % IMMATURE GRANULOCYTES (test code = 1036) 0.3 % NUCLEATED RBCS (test code = 1065) 0.0 /100WBC'S PLATELET COUNT (test code = 1015) 223 K/UL ABSOLUTE NEUTROPHILS (test c ode = 1066) 4.16 K/UL ABSOLUTE LYMPHOCYTES (test c ode = 1067) 1.61 K/UL ABSOLUTE MONOCYTES (test cod e = 1068) 0.64 K/UL ABSOLUTE EOSINOPHILS (test c ode = 1040) 0.21 K/UL ABSOLUTE BASOPHILS (test cod e = 1069) 0.05 K/UL ABS IMMATURE GRANULOCYTES (t est code = 1020) 0.02 K/UL ABS NUCLEATED RBCS (test cod e = 28047) 0.00 K/UL Gurpreet FerminCOMPREHENSIVE METABOLIC [id number] 00:00:00* Test Item Value Reference Range Interpretation Comme nts GLUCOSE (test code = 2217) 89 MG/DL BUN (test code = 2208) 9 MG/DL CREATININE (test code = 2214) 0.85 MG/DL eGFR (2020 CKD-EPI) (test co de = 77928) 93 ML/MIN/1.73 CALC BUN/CREAT (test code = 2235) 11 RATIO SODIUM (test code = 2231) 138 MEQ/L POTASSIUM (test code = 2228) 4.1 MEQ/L CHLORIDE (test code = 2215) 99 MEQ/L CARBON DIOXIDE (test code = 2206) 25 MEQ/L CALCIUM (test code = 2209) 9.6 MG/DL PROTEIN, TOTAL (test code = 2229) 7.5 G/DL ALBUMIN (test code = 2201) 4.6 G/DL CALC GLOBULIN (test code = 2240) 2.9 G/DL CALC A/G RATIO (test code = 2234) 1.6 RATIO BILIRUBIN, TOTAL (test code = 2207) 0.2 MG/DL ALKALINE PHOSPHATASE (test code = 2204) 109 U/L AST (test code = 2218) 15 U/L ALT (test code = 2219) 13 U/L Gurpreet FerminHEMOGLOBIN [id number] 00:00:00* Test Item Value Reference Range Interpretation Comme marcela HEMOGLOBIN A1c (test code = 17514) 5.6 % Gurpreet FerminLIPID [id number] 00:00:00* Test Item Value Reference Range Interpretation Comme nts CHOLESTEROL (test code = 2210) 197 MG/DL TRIGLYCERIDES (test code = 2232) 132 MG/DL HDL CHOLESTEROL (test code = 2220) 49 MG/DL CALC LDL CHOL (test code = 2237) 123 MG/DL RISK RATIO LDL/HDL (test cod e = 2238) 2.51 RATIO Gurpreet Esposito, [id number] 11:38:24SPECIMEN NUMBER: [id number] CULTURE, URINE SPECIMEN NUMBER: [id number] SPECIMEN COMMENT: URINE SOURCE: URINE REPORT STATUS: FINAL ISOLATE NUMBER 1: ORGANISM: 02/08/2023 10-50,000 CFU/ML ENTEROCOCCUS SPECIES (GROUP D) IDENTIFICATION: 02/09/2023 ENTEROCOCCUS SPECIES (GROUP D) ENTEROCOCCUS SP. AMPICILLIN SENSITIVE <=2CIPROFLOXACIN SENSITIVE <=1LEVOFLOXACIN SENSITIVE 1NITROFURANTOIN SENSITIVE <=32TETRACYCLINE RESISTANT >8VANCOMYCIN SENSITIVE 2 NOTE: NUMBERS DISPLAYED REPRESENT MINIMUM INHIBITORY CONCENTRATION (JOJO) WHICH IS EXPRESSED IN MCG/ML. UNLESS OTHERWISE INDICATED, ALL TESTING PERFORMED AT [facility] [address] [place] [address] NEWS PRODUCTION ASSISTANT: DEJAN BALDERAS M.D. [place] NUMBER [id number] [facility] [place]. [id number], [id number] 00:00:00* Test Item Value Reference Range Interpretation Comme nts CULTURE, URINE (test code = 76853) SPECIMEN NUMBER: [id number] Gurpreet FerminHIV 1/2 4TH GEN, RFLX [id number] 04:27:10* Test Item Value Reference Range Interpretation Comme nts HIV 1/2 4TH GEN, RFLX CONF ( test code = 3514) NON-REACTIVE NON-REACTIVE RPR REFLEX TO T. PALLIDUM - [id number] 03:13:23* Test Item Value Reference Range Interpretation Comme nts RPR (test code = 07185) NON-REACTIVE NON-REACTIVE RPR TITER (test code = 3500) NOT INDIC. TITER NOT INDIC. UNLESS OTHERWISE INDICATED, ALL TESTING PERFORMED AT [facility], [facility]. [address] [place] [address] NEWS PRODUCTION ASSISTANT: DEJAN BALDERAS M.D. CLIA NUMBER [id number] [place]. [id number] HIV 1/2 4TH GEN, RFLX [id number] 00:00:00* Test Item Value Reference Range Interpretation Comme nts HIV 1/2 4TH GEN, RFLX CONF ( test code = 3514) NON-REACTIVE Gurpreet FerminRPR REFLEX TO T. PALLIDUM - [id number] 00:00:00* Test Item Value Reference Range Interpretation Comme nts RPR (test code = 30865) NON-REACTIVE RPR TITER (test code = 3500) NOT INDIC. TITER Gurpreet FerminCT/NG, NAAT, [id number] 19:32:47* Test Item Value Reference Range Interpretation Comme nts CHLAMYDIA, NAAT, URINE (test code = 91304) NEGATIVE NEGATIVE Testing is perfo rmed with Casey KRANTHI 6800/8800 systems usingreal-time polymerase chain reaction (PCR) method. A negative result does not exclude low level infection, specimensampling error, or collection error. GONORRHEA, NAAT, URINE (test code = 51044) NEGATIVE NEGATIVE Testing is perfo rmed with Casey KRANTHI 6800/8800 systems usingreal-time polymerase chain reaction (PCR) method. A negative result does not exclude low level infection, specimensampling error, or collection error. UNLESS OTHERWISE INDICATED, ALL TESTING PERFORMED AT [facility] [facility] [address] [place] [address] NEWS PRODUCTION ASSISTANT: DEJAN BALDERAS M.D. CLIA NUMBER [id number] [place]. [id number] VAGINAL PATHOGENS DNA [id number] 14:29:55* Test Item Value Reference Range Interpretation Comme nts KAITLYN SPECIES (test code = 91543) NEGATIVE NEGATIVE G. VAGINALIS (test code = 95253) NEGATIVE NEGATIVE T. VAGINALIS (test code = 64895) NEGATIVE NEGATIVE Note: The [facility] VPIII Microbial Identification Testis a DNA probe test intended for use in the detectionand identification of Kaitlyn species, Gardnerellavaginalis and Trichomonas vaginalis nucleic acid. CT/NG, TMA, [id number] 00:00:00* Test Item Value Reference Range Interpretation Comme nts CHLAMYDIA, NAAT, URINE (test code = 28816) NEGATIVE GONORRHEA, NAAT, URINE (test code = 81763) NEGATIVE Gurpreet FerminVAGINAL PATHOGENS DNA [id number] 00:00:00* Test Item Value Reference Range Interpretation Comme nts KAITLYN SPECIES (test code = 11367) NEGATIVE G. VAGINALIS (test code = 77662) NEGATIVE T. VAGINALIS (test code = 06080) NEGATIVE Gurpreet FerminTSH + FREE T4 [id number] 03:59:20* Test Item Value Reference Range Interpretation Comme nts TSH, THIRD GENERATION (test code = 2821) 2.770 UIU/ML 0.400-4.100 FREE T4 (THYROXINE) (test code = 2823) 1.06 NG/DL 0.80-1.90 UNLESS OTHERW ISE INDICATED, ALL TESTING PERFORMED AT [facility] [address] [place] [address] NEWS PRODUCTION ASSISTANT: DEJAN BALDERAS M.D. CLIA NUMBER [id number] [facility] [place] [place]. [id number] TSH + FREE T4 [id number] 00:00:00* Test Item Value Reference Range Interpretation Comme nts TSH, THIRD GENERATION (test code = 2821) 2.770 UIU/ML FREE T4 (THYROXINE) (test co de = 2823) 1.06 NG/DL Gurpreet FerminVITAMIN D, 25 [id number] 05:23:57* Test Item Value Reference Range Interpretation Comme [facility] VITAMIN D, 25 OH (test code = 4958) 16 NG/ML SEE BELOW L EFFECTIVE 11/2022, PLEASE NOTE NEW METHODOLOGY IS ELECTROCHEMILUMINESCENCE BINDING ASSAY. NOTE: 25-HYDROXYVITAMIN D ASSAY INCLUDES 25-HYDROXYVITAMIN D2 AND D3. INTERPRETIVE RANGES PEDIATRIC (<17 YEARS) . . . . . . . . . . . NG/ML 20-100ADULT: INSUFFICIENT . . . . . . . . . . . . . . NG/ML <20 SUBOPTIMAL . . . . . . . . . . . . . . . NG/ML 20-29 OPTIMAL . . . . . . . . . . . . . . . . . NG/ML 30-100 TSH, THIRD [id number] 05:23:26* Test Item Value Reference Range Interpretation Comme nts TSH, THIRD GENERATION (test code = 2821) 4.650 UIU/ML 0.400-4.100 H VITAMIN [id number] 05:23:26* Test Item Value Reference Range Interpretation Comme nts VITAMIN B-12 (test code = 2840) 385 PG/ML 200-950 [facility] has impo rtant pathology staff changes effective 05/30/2022. New pathology staff will provide uninterrupted, excellent patient care and clinical consultation. See URL: [email or web address] UNLESS OTHERWISE INDICATED, ALL TESTING PERFORMED AT [facility] [address] [place] [address] CLIA: [id number], CAP: [id number] COMPREHENSIVE METABOLIC [id number] 04:31:58* Test Item Value Reference Range Interpretation Comme nts GLUCOSE (test code = 2217) 90 MG/DL 70-99 BUN (test code = 2208) 7 MG/DL 6-20 CREATININE (test code = 2214) 0.64 MG/DL 0.60-1.30 eGFR (2020 CKD-EPI) (test code = 01597) 121 ML/MIN/1.73 >60 CALC BUN/CREAT (test code = 2235) 11 RATIO 6-28 SODIUM (test code = 2231) 140 MEQ/L 133-146 POTASSIUM (test code = 2228) 3.6 MEQ/L 3.5-5.4 CHLORIDE (test code = 2215) 104 MEQ/L 95-107 CARBON DIOXIDE (test code = 2206) 25 MEQ/L 19-31 CALCIUM (test code = 2209) 9.0 MG/DL 8.5-10.5 PROTEIN, TOTAL (test code = 2229) 6.8 G/DL 6.1-8.3 ALBUMIN (test code = 2201) 4.4 G/DL 3.5-5.2 CALC GLOBULIN (test code = 2240) 2.4 G/DL 1.9-3.7 CALC A/G RATIO (test code = 2234) 1.8 RATIO 1.0-2.6 BILIRUBIN, TOTAL (test code = 2207) 0.4 MG/DL See_Comment [Automated me ssage] The system which generated this result transmitted reference range: <=1.2. The reference range was not used to interpret this result as normal/abnormal. ALKALINE PHOSPHATASE (test code = 4) 75 U/L 40-114 AST (test code = 2218) 27 U/L 9-40 ALT (test code = 2219) 30 U/L 5-40 LIPID [id number] 04:31:58* Test Item Value Reference Range Interpretation Comme nts CHOLESTEROL (test code = 2210) 190 MG/DL <200 TRIGLYCERIDES (test code = 2232) 75 MG/DL <150 HDL CHOLESTEROL (test code = 0) 61 MG/DL >39 CALC LDL CHOL (test code = 7) 113 MG/DL <100 H NOTE: CALCULATED LDL IS BASED ON SAVANA-CAM METHOD WHICHINCLUDES ADJUSTABLE TRIGLYCERIDE:VLDL CHOLESTEROL RATIO.THIS FACTOR VARIES BY MEASURED TRIGLYCERIDE AND NON-HDLCHOLESTEROL CONCENTRATIONS WITH INCREASED CALCULATED LDL SEENIN HIGHER TRIGLYCERIDE OR LOWER NON-HDL SPECIMENS. FOR MOREINFORMATION, SEE CLIENT ANNOUNCEMENT AT [email or web address] RISK RATIO LDL/HDL (test code = 2238) 1.85 RATIO <3.22 CBC W/AUTO DIFF WITH [id number] 03:20:56* Test Item Value Reference Range Interpretation Comme nts WBC (test code = 1001) 5.3 K/UL 3.5-11.0 RBC (test code = 1002) 4.40 M/UL 3.80-5.40 HEMOGLOBIN (test code = 1003) 11.7 G/DL 11.5-15.5 HEMATOCRIT (test code = 1004) 35.4 % 34.0-45.0 MCV (test code = 1005) 80.5 fL 80.0-99.0 MCH (test code = 1006) 26.6 PG 25.0-33.0 MCHC (test code = 1007) 33.1 G/DL 31.0-36.0 RDW (test code = 1038) 13.6 % 11.5-15.0 NEUTROPHILS (test code = 1008) 46.7 % LYMPHOCYTES (test code = 1010) 39.7 % MONOCYTES (test code = 1011) 8.2 % EOSINOPHILS (test code = 1012) 4.0 % BASOPHILS (test code = 1013) 1.0 % IMMATURE GRANULOCYTES (test code = 1036) 0.4 % NUCLEATED RBCS (test code = 1065) 0.0 /100 WBC'S See_Comment [Automated messa ge] The system which generated this result transmitted reference range: 0.0. The reference range was not used to interpret this result as normal/abnormal. PLATELET COUNT (test code = 1015) 208 K/UL 130-400 ABSOLUTE NEUTROPHILS (test code = 1066) 2.46 K/UL 1.50-7.50 ABSOLUTE LYMPHOCYTES (test code = 1067) 2.09 K/UL 1.00-4.00 ABSOLUTE MONOCYTES (test code = 1068) 0.43 K/UL 0.20-1.00 ABSOLUTE EOSINOPHILS (test code = 1040) 0.21 K/UL 0.00-0.50 ABSOLUTE BASOPHILS (test code = 1069) 0.05 K/UL 0.00-0.20 ABS IMMATURE GRANULOCYTES (test code = 1020) 0.02 K/UL 0.00-0.10 ABS NUCLEATED RBCS (test code = 93346) 0.00 K/UL 0.00-0.11 HEMOGLOBIN [id number] 03:07:30* Test Item Value Reference Range Interpretation Comme nts HEMOGLOBIN A1c (test code = 46776) 5.5 % 4.2-5.6 CBC W/AUTO [id number] 00:00:00* Test Item Value Reference Range Interpretation Comme nts WBC (test code = 1001) 5.3 K/UL RBC (test code = 1002) 4.40 M/UL HEMOGLOBIN (test code = 1003) 11.7 G/DL HEMATOCRIT (test code = 1004) 35.4 % MCV (test code = 1005) 80.5 fL MCH (test code = 1006) 26.6 PG MCHC (test code = 1007) 33.1 G/DL RDW (test code = 1038) 13.6 % NEUTROPHILS (test code = 1008) 46.7 % LYMPHOCYTES (test code = 1010) 39.7 % MONOCYTES (test code = 1011) 8.2 % EOSINOPHILS (test code = 1012) 4.0 % BASOPHILS (test code = 1013) 1.0 % IMMATURE GRANULOCYTES (test code = 1036) 0.4 % NUCLEATED RBCS (test code = 1065) 0.0 /100WBC'S PLATELET COUNT (test code = 1015) 208 K/UL ABSOLUTE NEUTROPHILS (test c ode = 1066) 2.46 K/UL ABSOLUTE LYMPHOCYTES (test c ode = 1067) 2.09 K/UL ABSOLUTE MONOCYTES (test cod e = 1068) 0.43 K/UL ABSOLUTE EOSINOPHILS (test c ode = 1040) 0.21 K/UL ABSOLUTE BASOPHILS (test cod e = 1069) 0.05 K/UL ABS IMMATURE GRANULOCYTES (t est code = 1020) 0.02 K/UL ABS NUCLEATED RBCS (test cod e = 40928) 0.00 K/UL Gurpreet FerminCOMPREHENSIVE METABOLIC [id number] 00:00:00* Test Item Value Reference Range Interpretation Comme nts GLUCOSE (test code = 2217) 90 MG/DL BUN (test code = 2208) 7 MG/DL CREATININE (test code = 2214) 0.64 MG/DL eGFR (2020 CKD-EPI) (test code = 69857) 121 ML/MIN/1.73 CALC BUN/CREAT (test code = 2235) 11 RATIO SODIUM (test code = 2231) 140 MEQ/L POTASSIUM (test code = 2228) 3.6 MEQ/L CHLORIDE (test code = 2215) 104 MEQ/L CARBON DIOXIDE (test code = 2206) 25 MEQ/L CALCIUM (test code = 2209) 9.0 MG/DL PROTEIN, TOTAL (test code = 2229) 6.8 G/DL ALBUMIN (test code = 2201) 4.4 G/DL CALC GLOBULIN (test code = 2240) 2.4 G/DL CALC A/G RATIO (test code = 2234) 1.8 RATIO BILIRUBIN, TOTAL (test code = 2207) 0.4 MG/DL ALKALINE PHOSPHATASE (test code = 2204) 75 U/L AST (test code = 2218) 27 U/L ALT (test code = 2219) 30 U/L Gurpreet Larsen, THIRD [id number] 00:00:00* Test Item Value Reference Range Interpretation Comme nts TSH, THIRD GENERATION (test code = 2821) 4.650 UIU/ML Gurpreet FerminLIPID [id number] 00:00:00* Test Item Value Reference Range Interpretation Comme nts CHOLESTEROL (test code = 2210) 190 MG/DL TRIGLYCERIDES (test code = 2232) 75 MG/DL HDL CHOLESTEROL (test code = 2220) 61 MG/DL CALC LDL CHOL (test code = 2237) 113 MG/DL RISK RATIO LDL/HDL (test cod e = 2238) 1.85 RATIO Gurpreet FerminHEMOGLOBIN [id number] 00:00:00* Test Item Value Reference Range Interpretation Comme marcela HEMOGLOBIN A1c (test code = 47370) 5.5 % Gurpreet FerminVITAMIN D, 25 [id number] 00:00:00* Test Item Value Reference Range Interpretation Comme marcela VITAMIN D, 25 OH (test code = 4958) 16 NG/ML Gurpreet FerminVITAMIN [id number] 00:00:00* Test Item Value Reference Range Interpretation Comme [facility] VITAMIN B-12 (test code = 2840) 385 PG/ML Gurpreet FerminCOMP. METABOLIC PANEL (26880)2021-07-22 01:07:55* Test Item Value Reference Range Interpretation Comme [facility] NA (test code = 8488813338) 136 mmol/L 135-145 K (test code = 9879958030) 4.7 mmol/L 3.5-5.0 CL (test code = 0272146993) 99 mmol/L 98-108 CO2 TOTAL (test code = 8451391529) 22 mmol/L 23-31 L AGAP (test code = 5358510254) 2-16 BUN (test code = 6470564937) 9 mg/dL 7-23 GLUCOSE (test code = 4356222946) 104 mg/dL 70-110 CREATININE (test code = 9870416359) 0.68 mg/dL 0.50-1.04 TOTAL BILI (test code = 0046554784) 1.2 mg/dL 0.1-1.1 H CALCIUM (test code = 6813068159) 9.3 mg/dL 8.6-10.6 T PROTEIN (test code = 1999044191) 8.5 g/dL 6.3-8.2 H ALBUMIN (test code = 3795888382) 5.1 g/dL 3.5-5.0 H ALK PHOS (test code = 7630248866) 89 U/L 34-122 ALTv (test code = 1742-6) 19 U/L 5-35 AST(SGOT) (test code = 5815013091) 24 U/L 13-40 eGFR (test code = 1390425802) mL/min/1.73m2 HARSHA (test code = HARSHA) Association of Glomerular Filtration Rate (GFR) and Staging of Kidney Disease* + --+ --+ ------+| GFR (mL/min/1.73 m2) ?| With Kidney Damage ?| ?Without Kidney Damage+ --------+ --------+ +| ?>90 ?| ?Stage one ?| ? Normal ?+ ---+ ---+ -------+| ?60-89 ?| ?Stage two ?| ? Decreased GFR ? + --+ --+ ------+| ?30-59 ?| ?Stage three ?| ? Stage three ? + --+ --+ ------+| ?15-29 ?| ?Stage four ? | ? Stage four ?+ ---+ ---+ -------+| ?<15 (or dialysis) ? ?| ?Stage five ? | ? Stage five ?+ ---+ ---+ -------+ *Each stage assumes the associated GFR level has been in effect for at least three months. ?Stages 1 to 5, with or without kidney disease, indicate chronic kidney disease. Notes: Determination of stages one and two (with eGFR >59mL/min/1.73 m2) requires estimation of kidney damage for at least three months as defined by structural or functional abnormalities of the kidney, manifested by either:Pathological abnormalities or Markers of kidney damage (including abnormalities in the composition of the blood or urine or abnormalities in imaging tests). Lab Interpretation (test code = 86329-9) Abnormal [facility]2022-04-23 01:07:15* Test Item Value Reference Range Interpretation Comme nts LIPASE (test code = 4256778356) 37 U/L 0-220 Lab Interpretation (test cod e = 08726-7) Normal [facility] ResourcesCB WITH [id number] 00:55:14* Test Item Value Reference Range Interpretation Comme nts WBC (test code = 6690-2) See_Comment [Automated messa ge] The system which generated this result transmitted reference range: 4.30 - 11.10 10*3/?L. The reference range was not used to interpret this result as normal/abnormal. RBC (test code = 789-8) See_Comment H [Automated messa ge] The system which generated this result transmitted reference range: 3.93 - 5.25 10*6/?L. The reference range was not used to interpret this result as normal/abnormal. HGB (test code = 718-7) 14.6 g/dL 11.6-15.0 HCT (test code = 4544-3) 44.2 % 35.7-45.2 MCV (test code = 787-2) 82.8 fL 80.6-95.5 MCH (test code = 785-6) 27.3 pg 25.9-32.8 MCHC (test code = 786-4) 33.0 g/dL 31.6-35.1 RDW-SD (test code = 96437-0) 38.7 fL 39.0-49.9 L RDW-CV (test code = 788-0) 12.9 % 12.0-15.5 PLT (test code = 777-3) See_Comment [Automated messa ge] The system which generated this result transmitted reference range: 166 - 358 10*3/?L. The reference range was not used to interpret this result as normal/abnormal. MPV (test code = 84621-7) 10.5 fL 9.5-12.9 NRBC/100 WBC (test code = 6996041877) See_Comment [Automated [employer] ssage] The system which generated this result transmitted reference range: 0.0 - 10.0 /100 WBCs. The reference range was not used to interpret this result as normal/abnormal. NRBC x10^3 (test code = 3709904666) <0.01 See_Comment [Automated messa ge] The system which generated this result transmitted reference range: 10*3/?L. The reference range was not used to interpret this result as normal/abnormal. GRAN MAT (NEUT) % (test code = 770-8) 88.4 % IMM GRAN % (test code = 6661937742) 0.30 % LYMPH % (test code = 736-9) 5.5 % MONO % (test code = 5905-5) 5.3 % EOS % (test code = 713-8) 0.1 % BASO % (test code = 706-2) 0.4 % GRAN MAT x10^3(ANC) (test code = 5410181512) 6.88 10*3/uL 1.88-7.09 IMM GRAN x10^3 (test code = 0912016091) <0.03 0.00-0.06 LYMPH x10^3 (test code = 731-0) 0.43 10*3/uL 1.32-3.29 L MONO x10^3 (test code = 742-7) 0.41 10*3/uL 0.33-0.92 EOS x10^3 (test code = 711-2) <0.03 0.03-0.39 L BASO x10^3 (test code = 704-7) 0.03 10*3/uL 0.01-0.07 Lab Interpretation (test code = 15487-1) Abnormal [facility] ResourcesPOCT [id number] 00:47:00* Test Item Value Reference Range Interpretation Comme nts POCT PREG (test code = 1605) negative On board controls acceptable with C Line (test code = 3574) present POCT PREG LOT # (test code = 3575) [id number] POCT PREG TEST DATE ( test code = 3576) Lab Interpretation (test cod e = 55505-4) Normal [facility] ResourcesCT CHE[facility] PULMONARY [id number] 20:15:15HISTORY: Rule out P.E. TECHNIQUE: Contrast-enhanced 64-mutidetector CT scan of the chest wascompleted with intravenous injection of ?Omnipaque-350 non ionic contrastmedium. Subsequently numerous sagittal, coronal and MIP reformations weregenerated. FINDINGS: Small portion of the included thyroid gla nd is unremarkable. Inthe right paratracheal space, 10 mm size slightly enlarged lymph nodenoted. The slightly enlarged lymph node is seen in the subcarinal space. No other enlarged lymph nodes are seen surrounding the trachea or in thehilar regions. No acute pulmonary thromboembolism detected. ?Nopleural orpericardial effusion, pneumothorax or pneumomediastinum. No aortic aneurysmor dissection.No compression fracture in the thoracic spines areaggressive bone lesions visualized. Portions of superior segment of left lower lobe shows consolidation withadditional fluffy infiltrates in the restof the left lower lobe. 3 mm nodule is seen in the right middle lobe (4:55).3 mm nodule in the right upper lung (4:44).3 mm nodule anterior right lower lung (4:74). CONCLUSIONS:1. No acute pulmonary thromboembolism.2. Left lower lung pneumonia. No pleural effusion. [facility], Radiant Results Inft User -06/17/2019 3:16 PM CDTHISTORY: Rule out P.E.TECHNIQUE: Contrast-enhanced 64-mutidetector CT scan of the chest wascompleted with intravenous injection of Omnipaque-350 non ionic contrastmedium. Subsequently numerous sagittal, coronal and MIP reformations weregenerated.FINDINGS: Small portion of the included thyroid gland is unremarkable. Inthe right paratracheal space, 10 mm size slightly enlargedlymph nodenoted. The slightly enlarged lymph node is seen in the subcarinal space.No other enlargedlymph nodes are seen surrounding the trachea or in thehilar regions. No acute pulmonary thromboembolism detected. No pleural orpericardial effusion, pneumothorax or pneumomediastinum. No aortic aneurysmor dissection. No compression fracture in the thoracic spines areaggressive bone lesions visualize d.Portions of superior segment of left lower lobe shows consolidation withadditional fluffy infiltrates in the rest of the left lower lobe.3 mm nodule is seen in the right middle lobe (4:55).3 mm nodule in the right upper lung (4:44).3 mm nodule anterior right lower lung (4:74).CONCLUSIONS:1. No acute pulmonary thromboembolism.2. Left lower lung pneumonia. No pleural effusion. [facility] ResourcesUrinalysis2020-03-18 20:04:00* Test Item Value Reference Range Interpretation Comme nts APPEARANCE (test code = 8509175106) Clear Clear COLOR (test code = 0766243866) Yellow Yellow PH (test code = 8808757295) 4.8-8.0 SP GRAVITY (test code = 6347730184) 1.003-1.030 GLU U QUAL (test code = 1579894971) Normal Normal BLOOD (test code = 7416734028) Negative Negative KETONES (test code = 5093783285) Negative Negative PROTEIN (test code = 2887-8) Negative Negative UROBILIN (test code = 0005201331) Normal Normal BILIRUBIN (test code = 0435967788) Negative Negative NITRITE (test code = 4609691847) Negative Negative LEUK KAIT (test code = 4186135504) Negative Negative RBC/HPF (test code = 3810829057) See_Comment [Automated messa ge] The system which generated this result transmitted reference range: 0 - 3 HPF. The reference range was not used to interpret this result as normal/abnormal. WBC/HPF (test code = 7165650275) See_Comment [Automated messa ge] The system which generated this result transmitted reference range: 0 - 5 HPF. The reference range was not used to interpret this result as normal/abnormal. BACTERIA (test code = 7612689447) Few Negative A MUCOUS (test code = 7111426174) Moderate Negative LPF A SQ EPITH (test code = 7609815315) HPF GRAN CASTS (test code = 6098800235) See_Comment [Automated messa ge] The system which generated this result transmitted reference range: <=1 LPF. The reference range was not used to interpret this result as normal/abnormal. Lab Interpretation (test code = 74753-2) Abnormal [facility] Test, [id number] 19:15:00 * Test Item Value Reference Range Interpretation Comme nts POCT PREG (test code = 1605) negative On board controls acceptable with C Line (test code = 3574) present POCT PREG LOT # (test code = 3575) [id number] POCT PREG TEST DATE ( test code = 3576) 10/29/2020 Lab Interpretation (test cod e = 74466-3) Normal [facility]. METABOLIC PANEL (71112)2019-06-17 18:58:00* Test Item Value Reference Range Interpretation Comme nts NA (test code = 9231118874) 136 mmol/L 135-145 K (test code = 0417568025) 3.8 mmol/L 3.5-5 CL (test code = 2736639140) 100 mmol/L 98-108 CO2 TOTAL (test code = 1319891626) 23 mmol/L 23-31 AGAP (test code = 9190935084) 2-16 BUN (test code = 6536714832) 5 mg/dL 7-23 L GLUCOSE (test code = 9854139778) 108 mg/dL 70-110 CREATININE (test code = 7726055291) 0.52 mg/dL 0.5-1.04 TOTAL BILI (test code = 2426352041) 0.5 mg/dL 0.1-1.1 CALCIUM (test code = 9201917837) 9.2 mg/dL 8.6-10.6 T PROTEIN (test code = 2474987618) 7.4 g/dL 6.3-8.2 ALBUMIN (test code = 7795625276) 4.3 g/dL 3.5-5 ALK PHOS (test code = 7376037938) 85 U/L 34-122 ALTv (test code = 1742-6) 30 U/L 5-35 AST(SGOT) (test code = 9836768254) 27 U/L 13-40 eGFR Calculation (Non-) (test code = 5801254990) mL/min/1.73m2 eGFR Calculation () (test code = 9537214414) mL/min/1.73m2 HARSHA (test code = HARSHA) Association of Glomerular Filtration Rate (GFR) and Staging of Kidney Disease* + --+ --+ ------+| GFR (mL/min/1.73 m2) ?| With Kidney Damage ?| ?Without Kidney Damage+ --------+ --------+ +| ?>90 ?| ?Stage one ?| ? Normal ?+ ---+ ---+ -------+| ?60-89 ?| ?Stage two ?| ? Decreased GFR ? + --+ --+ ------+| ?30-59 ?| ?Stage three ?| ? Stage three ? + --+ --+ ------+| ?15-29 ?| ?Stage four ? | ? Stage four ?+ ---+ ---+ -------+| ?<15 (or dialysis) ? ?| ?Stage five ? | ? Stage five ?+ ---+ ---+ -------+ *Each stage assumes the associated GFR level has been in effect for at least three months. ?Stages 1 to 5, with or without kidney disease, indicate chronic kidney disease. Notes: Determination of stages one and two (with eGFR >59mL/min/1.73 m2) requires estimation of kidney damage for at least three months as defined by structural or functional abnormalities of the kidney, manifested by either:Pathological abnormalities or Markers of kidney damage (including abnormalities in the composition of the blood or urine or abnormalities in imaging tests). Lab Interpretation (test code = 21495-3) Abnormal [facility] ResourcesADC,CLC OR LCC ONLY - INFLUENZA A & B DIRECT [id number] 18:41:00* Test Item Value Reference Range Interpretation Comme nts Influenza A (test code = 36351-7) Negative Negative Influenza B (test code = 16307-4) Negative Negative Lab Interpretation (test cod e = 82333-3) Normal [facility] ResourcesD-[id number] 18:31:00* Test Item Value Reference Range Interpretation Comments D-DIMER (test code = 1231222038) See_Comment H [Automated message] The system which generated this result transmitted reference range: <0.41 ?g/mL (FEU). The reference range was not used to interpret this result as normal/abnormal. HARSHA (test code = HARSHA) This test may be used in conjunction with a clinical pretest probability (PTP) assessment model to exclude venous thromboembolism (VTE) in patients suspected of deep venous thrombosis (DVT) and pulmonary embolism (PE) A D-Dimer value less than 0.50 ?g/ml (FEU) has a negative predicative value of 96 to 100% (95% CI)and 97 to 100% (95% CI) as an aid in the diagnosis of deep vein thrombosis (DVT) and pulmonary embolism when there is low or moderate pretest probability of PE or DVT. D-Dimer values are expressed in initial fibrinogen equivalent units (FEU)" The assay results should be used with other information, including the clinical context, in forming a diagnosis. Lab Interpretation (test code = 18482-1) Abnormal [facility] ResourcesCBC WITH [id number] 18:21:00* Test Item Value Reference Range Interpretation Comme nts WBC (test code = 6690-2) See_Comment [Automated messa ge] The system which generated this result transmitted reference range: 4.30 - 11.10 10*3/?L. The reference range was not used to interpret this result as normal/abnormal. RBC (test code = 789-8) See_Comment [Automated messa ge] The system which generated this result transmitted reference range: 3.93 - 5.25 10*6/?L. The reference range was not used to interpret this result as normal/abnormal. HGB (test code = 718-7) 13.5 g/dL 11.6-15 HCT (test code = 4544-3) 40.0 % 35.7-45.2 MCV (test code = 787-2) 84.4 fL 80.6-95.5 MCH (test code = 785-6) 28.5 pg 25.9-32.8 MCHC (test code = 786-4) 33.8 g/dL 31.6-35.1 RDW-SD (test code = 45723-7) 37.2 fL 39-49.9 L RDW-CV (test code = 788-0) 12.1 % 12-15.5 PLT (test code = 777-3) See_Comment [Automated messa ge] The system which generated this result transmitted reference range: 166 - 358 10*3/?L. The reference range was not used to interpret this result as normal/abnormal. MPV (test code = 17821-5) 10.2 fL 9.5-12.9 NRBC/100 WBC (test code = 6558098741) See_Comment [Automated [employer] ssage] The system which generated this result transmitted reference range: 0.0 - 10.0 /100 WBCs. The reference range was not used to interpret this result as normal/abnormal. NRBC x10^3 (test code = 2841975206) <0.01 See_Comment [Automated messa ge] The system which generated this result transmitted reference range: 10*3/?L. The reference range was not used to interpret this result as normal/abnormal. GRAN MAT (NEUT) % (test code = 770-8) 72.2 % IMM GRAN % (test code = 3020220995) 0.30 % LYMPH % (test code = 736-9) 17.1 % MONO % (test code = 5905-5) 9.6 % EOS % (test code = 713-8) 0.3 % BASO % (test code = 706-2) 0.5 % GRAN MAT x10^3(ANC) (test code = 2807567716) 4.52 10*3/uL 1.88-7.09 IMM GRAN x10^3 (test code = 7321456864) <0.03 0-0.06 LYMPH x10^3 (test code = 731-0) 1.07 10*3/uL 1.32-3.29 L MONO x10^3 (test code = 742-7) 0.60 10*3/uL 0.33-0.92 EOS x10^3 (test code = 711-2) <0.03 0.03-0.39 L BASO x10^3 (test code = 704-7) 0.03 10*3/uL 0.01-0.07 Lab Interpretation (test code = 65621-2) Abnormal [facility] ResourcesLactic Acid Whole [id number] 17:48:00* Test Item Value Reference Range Interpretation Comme nts LACTIC ACID (test code = 3372544318) 1.34 mmol/L 0.5-2.2 Lab Interpretation (test cod e = 97085-4) Normal [facility] ResourcesXR CHEST 1 [id number] 17:26:46HISTORY: Cough and fever. TECHNIQUE: Portable AP erect view of the chest is obtained. No prior cheststudy available for comparison. FINDINGS: Minimal congestion noted in the left infrahilar lung. No acutepneumonia. No pneumothorax or pleural effusion detected. Cardiac size iswithin normal limits. CONCLUSIONS: Minimal congestion in the left lower lung. Viral infectionlikely.[facility], Radiant Results Inft User - 06/17/2019 12:27 PM CDTHISTORY: Cough and fever.TECHNIQUE: Portable AP erect view of the chest is obtained. No prior cheststudy available for comparison.FINDINGS: Minimal congestion noted in the left infrahilar lung. No acutepneumonia. No pneumothorax or pleural effusion detected. Cardiacsize iswithin normal limits. CONCLUSIONS: Minimal congestion in the left lower lung. Viral infectionlikely.[facility] Notes Date/Time Note Provider Source Gurpreet Fermin [facility]
[2023-12-09 09:15] LABS: Specific Gravity > 1.030 (1.005-1.030)
[2023-12-09 09:16] LABS: Specific Gravity > 1.030 (1.005-1.030); Sqamous Epithelial <5 /HPF (None Seen); Urine Bacteria None Seen /HPF (<20); Urine Bilirubin NEGATIVE (Negative); Urine Blood Negative (Negative); Urine Clarity Turbid (Clear); Urine Color Yellow (Yellow); Urine Culture Reflex Order NOT NEEDED; Urine Glucose NEGATIVE (Negative); Urine Ketones NEGATIVE (Negative); Urine Microscopic Reflex YN ORDER UMIC; Urine Mucus Slight /HPF (None Seen); Urine Nitrite NEGATIVE (Negative); Urine Protein TRACE (Negative); Urine RBC None Seen /HPF (None Seen); Urine Urobilinogen Normal (Normal); Urine WBC <5 /HPF (<5); Urine Yeast (Budding) Trace /HPF (None Seen)
--- NOTE | 2023-12-09 09:50 | EDPHYS ---
Physician Documentation [facility] Name: Radha Sena Age: 33 yrs Sex: Female : 1990 Arrival Date: 12/09/2023 Time: 08:09 Bed 6 Private MD: ED Physician Al Curtis HPI: 12/08 08:55 This 33 yrs old Female presents to ER via Ambulatory with complaints of Wound Infection.cp 08:55 Onset: The symptoms/episode began/occurred 2-3 weeks. cp 08:55 Associated signs and symptoms: Pertinent positives: fever, itchy, Pertinent negatives: cp abdominal pain, constipation, diarrhea, sore throat, vomiting. 08:55 Patient reports taking Amoxicillin w/o improvement. cp Historical: - Allergies: 08:58 No Known Allergies; rs5 - PMHx: 08:58 depressive disorder; Anxiety; rs5 - PSHx: 08:58 None; rs5 - Immunization history:: Adult Immunizations up to date. - Infectious Disease History:: Denies. - Social history:: Smoking status: Patient denies any tobacco usage or history of. ROS: 09:00 Constitutional: Positive for fever, Negative for body aches, poor PO intake, cp 09:00 Eyes: Negative for injury, pain, redness, and discharge, cp 09:00 ENT: Negative for drainage from ear(s), ear pain, sore throat, difficulty swallowing, difficulty handling secretions, 09:00 Respiratory: Negative for shortness of breath, wheezing, 09:00 Abdomen/GI: Negative for abdominal pain, vomiting, diarrhea, constipation, 09:00 Skin: Positive for rash, of the right arm, right lower leg and left lower leg, 09:00 All other systems are negative, Exam: 09:05 Constitutional: The patient appears in no acute distress, alert, awake, non-toxic, well cp developed, well nourished, 09:05 Head/Face: Normocephalic, atraumatic. cp 09:05 Eyes: Periorbital structures: appear normal, Conjunctiva: normal, no exudate, no injection, Sclera: no appreciated abnormality, Lids and lashes: appear normal, bilaterally, 09:05 ENT: External ear(s): are unremarkable, Nose: is normal, Mouth: Lips: moist, Oral mucosa: pink and intact, moist, Posterior pharynx: Airway: no evidence of obstruction, patent, 09:05 Cardiovascular: Rate: normal, Rhythm: regular, 09:05 Respiratory: the patient does not display signs of respiratory distress, Respirations: normal, no use of accessory muscles, no retractions, labored breathing, is not present, Breath sounds: are clear throughout, no decreased breath sounds, no stridor, no wheezing, 09:05 Abdomen/GI: Palpation: abdomen is soft and non-tender, in all quadrants, 09:05 Skin: rash can be described as erythematous, papular, on the right lower leg and left lower leg, no drainage noted, web spaces of hands and feet clear, belt line clear, Vital Signs: 08:57 BP 135 / 79; Pulse 70; Resp 17; Temp 97.9(O); Pulse Ox 99% ; rs5 09:50 BP 133 / 75; Pulse 74; Resp 17; Pulse Ox 99% on R/A; rs5 MDM: 08:37 Patient medically screened. cp 09:00 Differential diagnosis: folliculitis, allergic rash, abscess, cellulitis. cp 09:48 Data reviewed: vital signs, nurses notes, lab test result(s), and as a result, I will cp discharge patient. 09:48 Counseling: I had a detailed discussion with the patient and/or guardian regarding the cp historical points, exam findings, and any diagnostic results supporting the discharge/admit diagnosis, to return to the emergency department if symptoms worsen or persist or if there are any questions or concerns that arise at home. 12/08 08:52 Order name: Urinalysis w/ reflexes; Complete Time: 09:17 cp 12/08 09:17 Interpretation: Normal except: [facility] Turbid; Urine SG > 1.030; UPROT TRACE; BYST Trace. cp 12/08 08:52 Order name: Test, Urine; Complete Time: 09:17 cp 12/08 09:17 Interpretation: Abnormal: Urine SG > 1.030. cp Administered Medications: No medications were administered Disposition: 10:41 Co-signature as Attending Physician, Al Curtis MD I reviewed the patient's care rt provided by the Advanced Practice Provider and agree with the diagnosis and treatment plan. Disposition Summary: 12/09/23 09:49 Discharge Ordered Notes: Location: Home cp Problem: new cp Symptoms: are unchanged cp Condition: Stable cp Diagnosis - Local infection of the skin and subcutaneous tissue, unspecified cp Followup: cp - With: Private Physician - When: 2 - 3 days - Reason: Worsening of condition Discharge Instructions: - Discharge Summary Sheet cp - Cellulitis, Adult cp Forms: - Medication Reconciliation Form cp - Antibiotic Education cp - Prescription Opioid Use cp - Patient Portal Instructions cp - Leadership Thank You Letter cp - Work release form rs5 Prescriptions: - mupirocin 2 % Topical ointment - apply 1 application TOPICAL route 2-3 times daily; 45 gram tube; Refills: 0, cp Product Selection Permitted - Bactrim DS 800-160 mg Oral Tablet - take 1 tablet ORAL route every 12 hours for 10 days; 20 tablet; Refills: 0, cp Product Selection Permitted Signatures: Dispatcher [employer] EDMS Travis Montemayor PA PA cp Chanelle Palomino, RN RN ko1 Al Curtis MD MD rt Laurent Wells RN RN rs5 Corrections: (The following items were deleted from the chart) 08:59 08:58 PSHx: Unable to Obtain; rs5 rs5 12/09 09:29 12/08 09:05 Skin: rash can be described as erythematous, papular, on the right lower cp leg and left lower leg, no drainage noted, cp
--- NOTE | 2023-12-09 09:50 | ER ---
Nurse's Notes [facility] Name: Radha Sena Age: 33 yrs Sex: Female : 1990 Arrival Date: 12/09/2023 Time: 08:09 Bed 6 Private MD: Diagnosis: Local infection of the skin and subcutaneous tissue, unspecified Presentation: 12/08 08:57 Chief complaint: Patient states: "I'm being bitten by some kind of bug when I sleep at rs5 night on my ankles, the bites leave bumps that itch terribly". Coronavirus screen: At this time, the client does not indicate any symptoms associated with coronavirus-19. Ebola Screen: No symptoms or risks identified at this time. Initial Sepsis Screen: Does the patient meet any 2 criteria? Yes Does the patient have a suspected source of infection? No. Patient's initial sepsis screen is negative. Risk Assessment: Do you want to hurt yourself or someone else? Patient reports no desire to harm self or others. Onset of symptoms was December 09, 2023. 08:57 Method Of Arrival: Ambulatory rs5 08:57 Acuity: HIRO 3 rs5 Triage Assessment: 10:04 General: Appears in no apparent distress. Behavior is calm, cooperative, appropriate ko1 for age. Pain:. 10:05 Pain: Complains of pain in ankles. ko1 Historical: - Allergies: 08:58 No Known Allergies; rs5 - PMHx: 08:58 depressive disorder; Anxiety; rs5 - PSHx: 08:58 None; rs5 - Immunization history:: Adult Immunizations up to date. - Infectious Disease History:: Denies. - Social history:: Smoking status: Patient denies any tobacco usage or history of. Screenin:15 [facility] ED Fall Risk Assessment (Adult) History of falling in the last 3 months, ko1 including since admission No falls in past 3 months (0 pts) Confusion or Disorientation No (0 pts) Intoxicated or Sedated No (0 pts) Impaired Gait No (0 pts) Mobility Assist Device Used No (0 pt) Altered Elimination No (0 pt) Score/Fall Risk Level 0 - 2 = Low Risk Oriented to surroundings, Maintained a safe environment, Educated pt \\T\\ family on fall prevention, incl call for assistance when getting out of bed, Assessed \\T\\ reinforced patient's understanding of fall precautions, Provided non-skid footwear, Hourly rounding (assess needs \\T\\ fall precautionary measures) done, Used ambulatory aids as needed (educated on \\T\\ assisted with), Used gait belt as appropriate. Abuse screen: Denies threats or abuse. Denies injuries from another. Nutritional screening: No deficits noted. Tuberculosis screening: No symptoms or risk factors identified. Assessment: 08:36 General: Appears in no apparent distress. comfortable, Behavior is calm, cooperative. rs5 Pain: Denies pain. Neuro: Level of Consciousness is awake, alert, obeys commands, Oriented to person, place, time, situation. Cardiovascular: Patient's skin is warm and dry. Respiratory: Airway is patent Respiratory effort is even, unlabored, Respiratory pattern is regular, symmetrical. GI: Abdomen is round non-distended, Abd is soft and non tender X 4 quads. : No signs and/or symptoms were reported regarding the genitourinary system. EENT: No signs and/or symptoms were reported regarding the EENT system. Derm: Skin is intact, Skin is pink, warm \\T\\ dry. 08:36 Derm: small red bumps noted to ankles bilat, pt states "I think something is biting me rs5 when I go to sleep at night, these bumps are a bit itchy ". Musculoskeletal: Range of motion: intact in all extremities. 09:55 Reassessment: Patient and/or family updated on plan of care and expected duration. Pain rs5 level reassessed. Patient is alert, oriented x 3, equal unlabored respirations, skin warm/dry/pink. Patient denies pain at this time. Vital Signs: 08:57 BP 135 / 79; Pulse 70; Resp 17; Temp 97.9(O); Pulse Ox 99% ; rs5 09:50 BP 133 / 75; Pulse 74; Resp 17; Pulse Ox 99% on R/A; rs5 ED Course: 08:11 Patient arrived in ED. [id number] 08:16 Travis Montemayor PA is PHCP. cp 08:16 Al Curtis MD is Attending Physician. cp 08:42 Laurent Wells, PRESTON is Primary Nurse. rs5 08:58 Triage completed. rs5 09:15 Patient has correct armband on for positive identification. Bed in low position. Call ko1 light in reach. Side rails up X 1. Provided Education on: tests. Pulse ox on. NIBP on. Door closed. Noise minimized. Lights dimmed. Warm blanket given. Pillow given. :59 No provider procedures requiring assistance completed. Patient did not have IV access ko1 during this emergency room visit. 10:05 Arm band placed on right wrist. Patient placed in an exam room, on a stretcher, on ko1 pulse oximetry, Patient notified of wait time. Administered Medications: No medications were administered Medication: :59 VIS not applicable for this client. ko1 Outcome: 09:49 Discharge ordered by MD. cp :59 Discharged to home ambulatory, ko1 :59 Condition: stable :59 Discharge instructions given to patient, Instructed on discharge instructions, follow up and referral plans. medication usage, Demonstrated understanding of instructions, follow-up care, medications, wound care, Prescriptions given X 2, 10:01 Patient left the ED. ko1 Signatures: Travis Montemayor PA PA cp Jeffries, Jennifer [id number] Chanelle Palomino RN RN ko1 Laurent Wells RN RN rs5 Corrections: (The following items were deleted from the chart) 08:59 08:58 PSHx: Unable to Obtain; rs5 rs5
[2023-12-09 10:11] VITALS: BP 135/79; TEMP 97.9; O2SAT 99
== END 2023-12-09 10:01 | disposition home or self-care (01) ==
LOC: ER 08:09
DX: L08.9 Local infection of the skin and subcutaneous tissue, unspecified (principal); R50.9 Fever, unspecified
CPT/HCPCS: 81001; 81025; 99283